=== PATIENT | female | born 1990 | race Two or more races ===

== ENCOUNTER 2025-01-11 11:28 | Emergency (ER) | payer MEDICAID, SELFPAY ==
[2025-01-11 12:18] VITALS: BP 137/87; PULSE 82; RESP 18; TEMP 36.6; O2SAT 98; BMI 37.8
--- NOTE | 2025-01-11 12:25 | XR_ITS ---
Examination: CT brain head without contrast. 2-D sagittal coronal reconstructions Date and time of exam:January 11, 2025 1328 hours INDICATIONS: Generalized head pain and dizziness beginning one week ago CTDI: vol (mGy):48 DLP: (mGycm):913 Technique: Multiple CT axial sections of the brain have been obtained, 5 mm slice thickness. Contrast has not been administered. 2-D sagittal, coronal reconstructions have been obtained Low dose protocols were performed. One or more of the following dose reduction techniques were used; automated exposure control, adjustment of the mA and/or KV according to patient size, use of iterative reconstruction technique. Findings: No significant ventricular enlargement. Intra-axial or extra-axial hemorrhage density is not seen. No mass effect or midline shift Basal cisterns are not remarkable. Fourth ventricle is midline. Cranial vault intact. Impression: Negative for acute hemorrhage, mass effect or midline shift Advise clinical correlation follow-up accordingly
--- NOTE | 2025-01-11 12:26 | EDNOTE_ITS ---
ED Dizzyness RME/HPI General Chief Complaint: Dizziness Stated Complaint: DIZZINESS, VOMITING, MIGRAINE X1MO. Time Seen by Provider: 01/11/25 12:23 Arrival date/time: 01/11/25 11:28 RME / HPI RME / HPI Narrative: 34-year-old female patient with significant history of possible migraine, has been having headache for 1 month, comes and goes, getting worse this morning, described as pulsating, severity moderate, associated with dizziness and vomiting. Patient denies any focal neurologic deficit. Patient denies any trauma to the head denies any fever denies any blurry vision denies any slurring of speech patient is ambulatory. No medication was taken prior to ER visit. Related Data Previous Rx's ?Medication ?Instructions ?Recorded Meclizine CHEW * (ANTIVERT CHEW *) 25 mg PO TID #30 ta bs 05/09/17 acetaminophen 650 mg 650 mg PO Q8H PRN fever or p ain 07/21/18 tablet,extended release #30 tabs meloxicam 15 mg tablet (Mobic) 15 mg PO QDAY #10 tabs 07/21/18 diazepam 10 mg tablet (Valium) 10 mg PO BID PRN muscle spasm #14 08/28/21 tabs naproxen 500 mg tablet (Naprosyn) 500 mg PO BID PRN pa in #30 tabs 08/28/21 acetaminophen 650 mg 650 mg PO Q8H PRN fever or p ain 10/07/21 tablet,extended release #30 tabs cyclobenzaprine 10 mg tablet 10 mg PO Q8H PRN muscle s pasm / 10/07/21 pain #15 tabs naproxen 500 mg tablet (Naprosyn) 500 mg PO BID PRN pa in #20 tabs 10/07/21 diazepam 10 mg tablet (Valium) 10 mg PO BID PRN muscle spasm #20 10/10/21 tabs naproxen 500 mg tablet (Naprosyn) 500 mg PO BID PRN pa in #30 tabs 10/10/21 rizatriptan 10 mg tablet (Maxalt) See Rx Instructions PO .COMPLEX 01/11/25 #20 tabs Allergies Allergy/AdvReac Type Severity Reaction Status Date / Time No Known Allergies Allergy Verified 01/11/25 11:30 Review of Systems Review of Systems Narrative Review of Systems: Review of system reviewed and within normal limits except mentioned in HPI ED Exam Narrative Physical exam: VITAL SIGNS: Reviewed. GENERAL APPEARANCE: Alert and interactive, follows commands, no acute distress, HEAD AND FACE: Non-traumatic. ENT: PERRL, pink conjunctivitis, eyelid no trauma, Mucous membrane moist. NECK: Supple, nontender, no nuchal rigidity. CHEST: No tenderness, no crepitus, no paradoxical movement, no retractions. LUNGS: Clear, well ventilated, symmetric, no rales, no wheezing, no ronchi, no stridor, good breath sounds bilaterally. HEART: Regular rate, regular rhythm, no murmur, no gallops. ABDOMEN: Soft, positive bowel sounds, nondistended, no guarding, nontender, no rebound, no masses, RECTAL: Deferred. GENITAL: Deferred. NEUROLOGICAL: Gross motor function intact sensory function intact, Appropriate for age. MUSCULOSKELETAL: low back nontender, full range of motion. EXTREMITIES: Nontender, full range of motion. SKIN: Color pink, dry, no rash, no lacerations, no abrasions, no contusions. LYMPHATICS: Deferred. Course Quality Measures none Orders Category Date Time Status CT head/brain wo con Stat Exams 01/11/25 12:25 Completed CMP [Comprehensive Metabolic Panel] Stat Lab 01/11/25 13:14 Completed Free T4 (Free Thyroxine) Stat Lab 01/11/25 13:14 Completed HCG,Qualitative Serum Stat Lab 01/11/25 13:14 Completed TSH [Thyroid Stimulating Hormone] Stat Lab 01/11/25 13:14 Completed Acetaminophen Tab [Tylenol ES Tab] Med 01/11/25 12:25 Discontinued 1,000 mg PO X1 ONE DiphenhydrAMINE [Benadryl] Med 01/11/25 12:25 Discontinued 25 mg PO X1 ONE Ketorolac Inj [Toradol Inj] Med 01/11/25 15:13 Discontinued 30 mg IM X1 ONE Metoclopramide [Reglan] Med 01/11/25 12:25 Discontinued 10 mg PO X1 ONE Vital Signs Vital signs: Vital Signs Temperature 97.9 F 01/11/25 12:18 Pulse Rate 82 01/11/25 12:18 Respiratory Rate 18 01/11/25 12:18 Blood Pressure 137/87 H 01/11/25 12:18 Pulse Oximetry (%) 98 01/11/25 12:18 Oxygen Delivery Method Room Air 01/11/25 12:18 Dizziness MDM Narrative [facility] Narrative:: 34-year-old female patient with significant history of possible migraine, has been having headache for 1 month, comes and goes, getting worse this morning, described as pulsating, severity moderate, associated with dizziness and vomiting. Patient denies any focal neurologic deficit. Patient denies any trauma to the head denies any fever denies any blurry vision denies any slurring of speech patient is ambulatory. No medication was taken prior to ER visit. CT scan of the head came back unremarkable. Results discussed with the patient. The rest of the labs unremarkable also. Patient received Toradol IM with significant improvement of headache. Will send this patient home on migraine medication. [facility] Patient data External records reviewed:: None Clinical information provided by:: none Social determinants that could affect healthcare access:: none Patient has the following chronic illnesses:: none How is presenting disease/condition affected by chronic disease/condition?: no chronic disease Evaluation data The following diagnostics were reviewed and interpreted by me:: lab results and radiology exam(s) Lab and/or radiology exams considered but not ordered:: None Interpretation Summary: See results MDM Medications / Prescriptions Medications or Prescriptions considered but not ordered:: None Medication administrations:: Medication Administration History Discontinued Medications Acetaminophen (Acetaminophen 500 Mg Tablet) 1,000 mg PO X1 ONE Stop: 01/11/25 12:26 Diphenhydramine HCl (Diphenhydramine 25 Mg Capsule) 25 mg PO X1 ONE Stop: 01/11/25 12:26 Ketorolac Tromethamine (Ketorolac Inj 60 Mg/2 Ml Vial) 30 mg IM X1 ONE Stop: 01/11/25 15:14 Metoclopramide HCl (Metoclopramide 5 Mg Tablet) 10 mg PO X1 ONE Stop: 01/11/25 12:26 Toradol IM Consultations Consultation(s) initiated? (list below): No Diagnosis Dizziness Differential Diagnosis: other (Headache, migraine headache, stress headache) Most likely diagnosis given after review of the tests above:: Headache Admission Indicated Admission indicated?: not indicated Admission Request Was there a request for admission?: No Disposition Plan Disposition Plan: Discharge Discharge Attestation Discharge Attestation: The patient was given an opportunity to ask questions and understood the discharge instructions. Discharge instructions specifically effects, indications for sooner follow up or return to the emergency department, and the expected course of current diagnosis. Patient condition: Stable Discharge Plan Plan Patient Disposition: HOME (Self Care) Discharge Disposition comment: stable Prescriptions/Referrals Prescriptions/Med Rec: New rizatriptan [Maxalt] 10 mg tablet See Rx Instructions .ROUTE .COMPLEX Qty: 20 0RF Rx Instructions: take 1 tab at onset of headache; if no relief may repeat 1 tab after at least 2 hrs; max = 3 tabs/24 hr No Action acetaminophen 650 mg tablet extended release 650 mg PO Q8H PRN (Reason: fever or pain) Qty: 30 0RF Rx Instructions: swallow whole; do not crush, chew, break, dissolve, cut, or open meloxicam [Mobic] 15 mg tablet 15 mg PO QDAY Qty: 10 0RF Meclizine CHEW * (ANTIVERT CHEW *) 25 MG TAB.CHEW 25 mg PO TID Qty: 30 0RF diazepam [Valium] 10 mg tablet 10 mg PO BID PRN (Reason: muscle spasm) Qty: 14 0RF naproxen [Naprosyn] 500 mg tablet 500 mg PO BID PRN (Reason: pain) Qty: 30 0RF cyclobenzaprine 10 mg tablet 10 mg PO Q8H PRN (Reason: muscle spasm / pain) Qty: 15 0RF acetaminophen 650 mg tablet extended release 650 mg PO Q8H PRN (Reason: fever or pain) Qty: 30 0RF Rx Instructions: swallow whole; do not chew/break/dissolve/open naproxen [Naprosyn] 500 mg tablet 500 mg PO BID PRN (Reason: pain) Qty: 20 0RF diazepam [Valium] 10 mg tablet 10 mg PO BID PRN (Reason: muscle spasm) Qty: 20 0RF naproxen [Naprosyn] 500 mg tablet 500 mg PO BID PRN (Reason: pain) Qty: 30 0RF Referrals: Reena Shafer MD [Primary Care Provider, Internal Medicine] - In 1 week Problem List Clinical Impression: Headache Patient/Caregiver Discharge Instructions Discharge Activity: activity as tolerated Education Materials: Self-Care for Headaches Additional Instructions: Thank you for the opportunity for serving you today. You are stable for discharged . You are advised to: Follow-up with your PCP in 1 to 2 days Return to ED for worsening of symptoms Increase oral fluids Take medication as prescribed Print Language: Macedonian Stand Alone Forms: [employer]Better Info., Patient Portal Info Letter PA/SEMICONDUCTOR TECHNICIAN Supervising Physician PA/SEMICONDUCTOR TECHNICIAN Supervising Physician: MD Kiley
[2025-01-11 13:35] LABS: HCG,Qualitative Serum Negative
[2025-01-11 13:44] LABS: Alanine Aminotransferase 18 U/L (10-49); Albumin, Serum 4.3 gm/dL (3.5-5.0); Albumin/Globulin Ratio 1.3 (1.2-2.2); Alkaline Phosphatase 56 U/L (46-116); Anion Gap 10 (7-16); Aspartate Amino Transferase 18 U/L (0-34); BUN/Creatinine Ratio 13 Ratio (12-20); Bilirubin,Total 0.3 mg/dL (0.3-1.2); Blood Urea Nitrogen 8 mg/dL (9-23); Calcium 9.1 mg/dL (8.3-10.6); Calcium (Corrected) 9.1 mg/dL (8.5-10.1); Carbon Dioxide 26.8 mMol/L (20.0-31.0); Chloride 106 mMol/L (98-107); Creatinine (Component) 0.6 mg/dL (0.6-1.3); Estimated Creatinine Clearance 136.8 mL/min (>60); Free T4 (Free Thyroxine) 1.11 ng/dL (0.89-1.76); Globulin 3.4 gm/dL (2.3-3.5); Glucose 98 mg/dL (74-106); Osmolality,Calculated 283 (275-295); Potassium 4.0 mMol/L (3.4-5.1); Sodium 143 mMol/L (136-145); Thyroid Stimulating Hormone 0.73 uIU/mL (0.55-4.78); Total Protein 7.7 gm/dL (5.7-8.2); eGFR > 60 See Note
[2025-01-11] MEDS: KETOROLAC INJ 60 MG/2 ML VIAL 30 MG IM (16:04)
== END 2025-01-11 17:17 | disposition home or self-care (01) ==
PROVIDERS: Nurse Practitioner Primary Care; Emergency Provider Emergency Medicine; PCP Student in an Organized Health Care Education/Training Program
DX: R51.9 Headache, unspecified (principal)
CPT/HCPCS: 36415; 70450; 80053; 84439; 84443; 84703; 96372; 99284; J1885

== ENCOUNTER 2025-04-05 19:44 | Emergency (ER) | payer MEDICAID, SELFPAY ==
[2025-04-05 19:45] VITALS: BMI 37.8
[2025-04-05 20:13] VITALS: BP 119/80; PULSE 99; RESP 17; TEMP 36.6; O2SAT 98
--- NOTE | 2025-04-05 20:27 | XR_ITS ---
Examination: Duplex scan of the lower extremity, unilateral right Date and time of exam: April 05, 2025, 2143 hours Leg pain and spasms today Technique: Duplex scan of the extremity veins using B-mode/grayscale imaging and Doppler spectral analysis and color flow Attention is directed to internal echogenicity, compression and augmentation involving these veins, color flow assessment, spectral analysis Findings: Major deep venous structures in the extremity demonstrate normal course and caliber. There is no evidence of deep vein thrombosis. Normal color flow and spectral analysis Impression: Negative for DVT..
--- NOTE | 2025-04-05 20:27 | XR_ITS ---
Examination: CT abdomen and pelvis without contrast. Coronal 3-D reconstructions. Sagittal 2-D reconstructions. Date and time of exam: April 05, 2025, 1009 hours INDICATIONS: Lower back pain today CTDI: vol (mGy): 11.2 DLP: (mGycm): 672 Technique: Axial images of the abdomen have been obtained, 3 mm slice thickness Intravenous contrast material has not been administered. Low dose protocols were performed. One or more of the following dose reduction techniques were used; automated exposure control, adjustment of the mA and/or KV according to patient size, use of iterative reconstruction technique. Findings: No visualized liver or splenic lesion No gallstones No pancreatic or adrenal mass No renal or ureteral calculi, no hydronephrosis 15 mm fat-containing umbilical hernia No bowel obstruction or diverticulitis Retroverted uterus Contracted urinary bladder No pericecal inflammatory change Adequate alignment lumbar vertebral bodies Please see the lumbar CT report IMPRESSION: No renal or ureteral calculi, no hydronephrosis No bowel obstruction or diverticulitis No CT findings of appendicitis Please see the CT lumbar spine report
--- NOTE | 2025-04-05 20:30 | XR_ITS ---
Examination: Pelvic ultrasound, transabdominal, complete Technique: Transabdominal ultrasound of the pelvis performed using grayscale imaging Date and time of exam: April 05, 2025, 2130 hours INDICATIONS: Pelvic pain today FINDINGS: Uterus 9.1 cm endometrial stripe 0.6 cm No uterine mass or intrauterine gestation Right ovary 3.3 cm arterial flow Left ovary obscured by bowel gas IMPRESSION: Limited study No uterine mass or intrauterine gestation Negative for right ovarian torsion
--- NOTE | 2025-04-05 20:32 | XR_ITS ---
Examination: CT lumbar spine, without contrast. 2-D sagittal reconstructions. 2-D coronal reconstructions. 3-D reconstructions. Date and time of exam: April 05, 2025, 1008 hours, comparison October 09, 2021 INDICATIONS: Onset lower back pain today CTDI: vol (mGy): 48.5 DLP: (mGycm): 1045 Technique: Multiple 1.25 mm axial sections of the lumbar spine have been obtained. 2-D sagittal and coronal reconstructions have been obtained. 3-D reconstructions have been obtained. Low dose protocols were performed. One or more of the following dose reduction techniques were used; automated exposure control, adjustment of the mA and/or KV according to patient size, use of iterative reconstruction technique. Findings: Adequate alignment lumbar vertebral bodies No lumbar vertebral body compression fracture Lumbar pedicles, laminae, transverse and posterior spinous processes intact L5-S1 no disc protrusion L4-L5 3 mm right paracentral disc bulge displacing the right L5 nerve root L3-L4 2 mm central lumbar disc bulge IMPRESSION: No lumbar fracture L4-L5 3 mm right paracentral disc bulge displacing the right L5 nerve root L3-L4 2 mm central lumbar disc bulge Consider elective MRI lumbar spine without contrast follow-up
--- NOTE | 2025-04-05 20:33 | EDNOTE_ITS ---
ED Back Injury Pain RME/HPI General Chief Complaint: Back Pain/Injury Stated Complaint: LOWER BACK SPASMS Time Seen by Provider: 04/05/25 20:27 Arrival date/time: 04/05/25 19:44 35F with history of chronic back pain presents to ED with 1 day of worsening low back pain and muscle spasms that radiates down RLE, as well as some N/V. Patient denies dysuria/hematuria, fall/trauma, and recent overexercise. Patient also denies obvious leg swelling, as well as saddles paresthesia and bowel/bladder incontinence. Limitations: no limitations Related Data Previous Rx's ?Medication ?Instructions ?Recorded Meclizine CHEW * (ANTIVERT CHEW *) 25 mg PO TID #30 ta bs 05/09/17 acetaminophen 650 mg 650 mg PO Q8H PRN fever or p ain 07/21/18 tablet,extended release #30 tabs meloxicam 15 mg tablet (Mobic) 15 mg PO QDAY #10 tabs 07/21/18 diazepam 10 mg tablet (Valium) 10 mg PO BID PRN muscle spasm #14 08/28/21 tabs naproxen 500 mg tablet (Naprosyn) 500 mg PO BID PRN pa in #30 tabs 08/28/21 acetaminophen 650 mg 650 mg PO Q8H PRN fever or p ain 10/07/21 tablet,extended release #30 tabs cyclobenzaprine 10 mg tablet 10 mg PO Q8H PRN muscle s pasm / 10/07/21 pain #15 tabs naproxen 500 mg tablet (Naprosyn) 500 mg PO BID PRN pa in #20 tabs 10/07/21 diazepam 10 mg tablet (Valium) 10 mg PO BID PRN muscle spasm #20 10/10/21 tabs naproxen 500 mg tablet (Naprosyn) 500 mg PO BID PRN pa in #30 tabs 10/10/21 rizatriptan 10 mg tablet (Maxalt) See Rx Instructions PO .COMPLEX 01/11/25 #20 tabs baclofen 5 mg tablet 5 mg PO BID PRN muscle spasm #14 04/06/25 tabs hydrocodone 5 mg-acetaminophen 325 1 tab PO BID PRN pa in #10 tabs 04/06/25 mg tablet Allergies Allergy/AdvReac Type Severity Reaction Status Date / Time No Known Allergies Allergy Verified 04/05/25 19:45 Review of Systems Review of Systems Systems Reviewed: All systems reviewed, normal except as documented Gastrointestinal Gastrointestinal: Reports as per HPI, Reports nausea and Reports vomiting Musculoskeletal Musculoskeletal: Reports as per HPI and Reports back pain Past Medical History Past Medical History CARDIAC: Negative Congestive Heart Failure RESPIRATORY: Negative Chronic Obstructive Pulmonary Disease (COPD) GENITOURINARY: Negative Renal Disease ENDOCRINE: Negative Diabetes Mellitus Type 1 or Diabetes Mellitus Type 2 Social History SMOKING STATUS: Never smoker ED Exam General Limitations: Present no limitations General appearance: Present alert and in no apparent distress Head Head exam: Present atraumatic Neck Neck exam: Present normal inspection, full ROM and trachea midline Chest Chest inspection: Present normal inspection and symmetric chest wall rise Back Exam Back exam: Present normal inspection Neurological Exam Neurological exam: Present alert and oriented X3 Psychiatric Psychiatric exam: Present normal affect and normal mood Skin Skin exam: Present warm, dry, intact and normal color Course Quality Measures none Orders Category Date Time Status CT abdomen pelvis wo con Stat Exams 04/05/25 20:[address] lumbar spine wo con Stat Exams 04/05/25 20:32 Completed US pelvic complete Stat Exams 04/05/25 20:30 Completed US venous doppler LE RT Stat Exams 04/05/25 20:27 Completed CBC Stat Lab 04/05/25 20:40 Completed CMP [Comprehensive Metabolic Panel] Stat Lab 04/05/25 20:40 Completed Drug Screen,Urine Stat Lab 04/05/25 00:28 Completed HCG,Qualitative Serum Stat Lab 04/05/25 20:40 Completed Urinalysis, C/S if Indicated Stat Lab 04/05/25 00:28 Completed Urine Culture Stat Lab 04/05/25 00:28 Received Morphine* Inj Med 04/05/25 20:27 Discontinued 4 mg IM X1 ONE Ondansetron Odt [Zofran Odt] Med 04/05/25 20:27 Discontinued 4 mg PO X1 ONE Vital Signs Vital signs: Vital Signs Temperature 97.8 F 04/05/25 20:13 Pulse Rate 99 04/05/25 20:13 Respiratory Rate 17 04/05/25 20:13 Blood Pressure 119/80 04/05/25 20:13 Pulse Oximetry (%) 98 04/05/25 20:13 Oxygen Delivery Method Room Air 04/05/25 20:13 O2 at 98% on RA and WNLs Back Pain / Injury MDM Narrative MDM Narrative:: 35F with history of chronic back pain presents to ED with 1 day of worsening low back pain and muscle spasms that radiates down RLE, as well as some N/V. Patient denies dysuria/hematuria, fall/trauma, and recent overexercise. Patient also denies obvious leg swelling, as well as saddles paresthesia and bowel/bladder incontinence. Physical exam reveals no obvious RLE swelling. No CVA tenderness. Patient is afebrile, alert, but is having some N/V. CT and US unremarkable. No leukocytosis or gross anemia. CMP unremarkable. UA contaminated, but will not treat given my dysuria. Patient felt better after meds. Patient data External records reviewed:: [facility] previous records Clinical information provided by:: patient Social determinants that could affect healthcare access:: none Patient has the following chronic illnesses:: none How is presenting disease/condition affected by chronic disease/condition?: no chronic disease Evaluation data The following diagnostics were reviewed and interpreted by me:: lab results and radiology exam(s) Lab and/or radiology exams considered but not ordered:: ordered Interpretation Summary: above Medications / Prescriptions Medications or Prescriptions considered but not ordered:: ordered Medication administrations:: Medication Administration History Discontinued Medications Morphine Sulfate (Morphine Sulf Inj 4 Mg/Ml Vial) 4 mg IM X1 ONE Stop: 04/05/25 20:28 Last Admin: 04/05/25 21:01 Dose: 4 mg Documented By: ALIZA Ondansetron HCl (Ondansetron Odt 4 Mg Tabrap) 4 mg PO X1 ONE; Protocol Stop: 04/05/25 20:28 Last Admin: 04/05/25 21:02 Dose: 4 mg Documented By: ALIZA above Consultations Consultation(s) initiated? (list below): No Diagnosis Differential diagnosis back pain/injury: lumbar radiculopathy, sciatica, strain of lumbar region, renal colic, pyelonephritis, thoracic back pain, AAA, discitis and other (UTI/pyelo vs torsion, low back pain ) Most likely diagnosis given after review of the tests above:: low back pain Admission Indicated Admission indicated?: not indicated Admission Request Was there a request for admission?: No Disposition Plan Disposition Plan: Discharge Discharge Attestation Discharge Attestation: The patient and all family members were given an opportunity to ask questions and understood the discharge instructions. Discharge instructions specifically effects, indications for sooner follow up or return to the emergency department, and the expected course of current diagnosis. Patient condition: Stable Discharge Plan Plan Patient Disposition: HOME (Self Care) Discharge Disposition comment: Stable Prescriptions/Referrals Prescriptions/Med Rec: New hydrocodone-acetaminophen 5-325 mg tablet 1 tab PO BID MDD 2 PRN (Reason: pain) Qty: 10 0RF baclofen 5 mg tablet 5 mg PO BID PRN (Reason: muscle spasm) Qty: 14 0RF No Action acetaminophen 650 mg tablet extended release 650 mg PO Q8H PRN (Reason: fever or pain) Qty: 30 0RF Rx Instructions: swallow whole; do not crush, chew, break, dissolve, cut, or open meloxicam [Mobic] 15 mg tablet 15 mg PO QDAY Qty: 10 0RF Meclizine CHEW * (ANTIVERT CHEW *) 25 MG TAB.CHEW 25 mg PO TID Qty: 30 0RF diazepam [Valium] 10 mg tablet 10 mg PO BID PRN (Reason: muscle spasm) Qty: 14 0RF naproxen [Naprosyn] 500 mg tablet 500 mg PO BID PRN (Reason: pain) Qty: 30 0RF cyclobenzaprine 10 mg tablet 10 mg PO Q8H PRN (Reason: muscle spasm / pain) Qty: 15 0RF acetaminophen 650 mg tablet extended release 650 mg PO Q8H PRN (Reason: fever or pain) Qty: 30 0RF Rx Instructions: swallow whole; do not chew/break/dissolve/open naproxen [Naprosyn] 500 mg tablet 500 mg PO BID PRN (Reason: pain) Qty: 20 0RF diazepam [Valium] 10 mg tablet 10 mg PO BID PRN (Reason: muscle spasm) Qty: 20 0RF naproxen [Naprosyn] 500 mg tablet 500 mg PO BID PRN (Reason: pain) Qty: 30 0RF rizatriptan [Maxalt] 10 mg tablet See Rx Instructions .ROUTE .COMPLEX Qty: 20 0RF Rx Instructions: take 1 tab at onset of headache; if no relief may repeat 1 tab after at least 2 hrs; max = 3 tabs/24 hr Referrals: Ethel Ross PA-C [Primary Care Provider] - In 1 week Problem List Clinical Impression: Low back pain Patient/Caregiver Discharge Instructions Education Materials: ED Back Pain (Acute or Chronic) Additional Instructions: Please follow-up with PCP within 24-48 hours and return immediately if symptoms worsen. If problem persists, recommend outpatient PT and/or MRI follow-up. In the meantime, rest, use ice/heat, and/or compression. Ibuprofen/Tylenol can be used simultaneously for greater fever/pain control. Print Language: Namibian Stand Alone Forms: Patient Portal Info Letter JANET/SELMA Supervising Physician JANET/SELMA Supervising Physician: Dr. Cao
[2025-04-05 20:48] LABS: Basophils # (Auto) 0.1 Thou/mm3 (0.0-0.2); Basophils % (Auto) 1 % (0-2.5); Eosinophils # (Auto) 0.1 Thou/mm3 (0.0-0.5); Eosinophils % (Auto) 1 % (0-10); Hematocrit 34.3 % (36.0-46.0); Hemoglobin 10.3 g/dL (12.0-16.0); Immature Granulocytes Auto 0.02 Thou/mm3 (0.00-0.00); Lymphocytes # (Auto) 3.3 Thou/mm3 (1.0-4.8); Lymphocytes % (Auto) 36 % (10-50); Mean Corpuscular HGB Conc 30.0 g/dl (31.0-37.0); Mean Corpuscular Hemoglobin 21.9 pg (25.0-35.0); Mean Corpuscular Volume 73 fL (80-100); Monocytes # (Auto) 0.5 Thou/mm3 (0.0-0.8); Monocytes % (Auto) 6 % (0-12); Neutrophils # (Auto) 5.2 Thou/mm3 (1.8-7.7); Neutrophils % (Auto) 56 % (37-80); Nucleated Red Blood Cell # 0.00 Thou/mm3 (0.00-0.00); Nucleated Red Blood Cell % 0 /100 WBC (0); Platelet Count 374 Thou/mm3 (140-440); RDW Standard Deviation 54.8 fL (36.4-46.3); Red Blood Count 4.71 Miln/mm3 (4.00-5.20); White Blood Count 9.3 Thou/mm3 (3.6-11.0)
[2025-04-05] MEDS: MORPHINE SULF INJ 4 MG/ML VIAL IM (21:01)
[2025-04-05] MEDS: ONDANSETRON ODT 4 MG TABRAP PO (21:02)
[2025-04-05 21:24] LABS: Alanine Aminotransferase 21 U/L (10-49); Albumin, Serum 4.1 gm/dL (3.5-5.0); Albumin/Globulin Ratio 1.0 (1.2-2.2); Alkaline Phosphatase 66 U/L (46-116); Anion Gap 9 (7-16); Aspartate Amino Transferase 20 U/L (0-34); BUN/Creatinine Ratio 17 Ratio (12-20); Bilirubin,Total 0.2 mg/dL (0.3-1.2); Blood Urea Nitrogen 12 mg/dL (9-23); Calcium 9.7 mg/dL (8.3-10.6); Calcium (Corrected) 9.7 mg/dL (8.5-10.1); Carbon Dioxide 27.1 mMol/L (20.0-31.0); Chloride 106 mMol/L (98-107); Creatinine (Component) 0.7 mg/dL (0.6-1.3); Estimated Creatinine Clearance 116.1 mL/min (>60); Globulin 4.1 gm/dL (2.3-3.5); Glucose 133 mg/dL (74-106); Osmolality,Calculated 284 (275-295); Potassium 3.6 mMol/L (3.4-5.1); Sodium 142 mMol/L (136-145); Total Protein 8.2 gm/dL (5.7-8.2); eGFR > 60 See Note
[2025-04-05 21:43] LABS: HCG,Qualitative Serum Negative
[2025-04-06 00:31] VITALS: BP 117/81; PULSE 79; RESP 18; TEMP 36.6; O2SAT 98
[2025-04-06 00:53] LABS: Collection Type, Urine Clean Catch
[2025-04-06 01:10] LABS: Amphetamine/Methamp Scrn,U Negative (Negative); Barbiturate Screen,Urine Negative (Negative); Benzodiazepines Screen,Urine Negative (Negative); Benzoylecgonine Screen, Ur Negative (Negative); Fentanyl Screen,Urine Negative (Negative); Opiate Screen,Urine Positive (Negative); THC Screen,Urine Negative (Negative)
[2025-04-06 01:25] LABS: Bacteria,Urine Rare; Bilirubin,Urine Negative (Negative); Blood,Urine 3+ (Negative); Calcium Oxalate Crystals,Urine 4+; Clarity,Urine Turbid (Clear/Hazy); Color,Urine Yellow (Lt Yel-Yel); Glucose, Urine Negative (Negative); Ketones,Urine Negative (Negative); Leukocyte Esterase,Urine Positive (Negative); Nitrite,Urine Negative (Negative); PH,Urine 5.5 (5.0-7.0); Protein,Urine Trace (Neg - Trace); RBC,Urine 25 /hpf (0-3); Specific Gravity,Urine 1.026 (1.001-1.035); Squamous Epithelial Cell,Urine 8 /hpf (0-5); Urobilinogen,Urine Negative mg/dL (0.0-1.0); WBC,Urine 17 /hpf (0-5)
[2025-04-06 01:26] LABS: Culture Indicated,Urine Yes
== END 2025-04-06 02:46 | disposition home or self-care (01) ==
PROVIDERS: Physician Assistant; Emergency Provider Emergency Medicine
DX: M54.50 Low back pain, unspecified (principal); G89.29 Other chronic pain; R10.20 Pelvic and perineal pain unspecified side; M79.604 Pain in right leg; M62.838 Other muscle spasm; R11.2 Nausea with vomiting, unspecified
CPT/HCPCS: 36415; 72131; 74176; 76856; 80053; 80307; 81001; 84703; 85025; 87086; 93971; 96372; 99284; J2270; Q0162